=== PATIENT | male | born 1980 | race Caucasian/White ===

== ENCOUNTER 2017-11-11 10:48 | Emergency (ER) | payer MEDICARE, MEDICAID ==
[~2017-11-11] VITALS: Ht 177.8 cm; Wt 89.5 kg
[~2017-11-11 10:48] MED LIST: CARB200T PO; HYDR25CA PO; OLAN15TA3 PO; SERT100T PO
[2017-11-11] MEDS ORDERED: SODIUM CHLORIDE 0.9% 1,000 ML IV ONE (11:20)
[2017-11-11] MEDS ORDERED: LORazepam 2 MG/ML, 1ML IVPush ONE (11:30)
[2017-11-11] MEDS ORDERED: SODIUM CHLORIDE 0.9% 1,000ML IVBOLUS ONE (11:30)
[2017-11-11] MEDS ORDERED: SODIUM CHLORIDE FLUSH 10ML SYR IVF ONE (11:30)
[2017-11-11] MEDS ORDERED: QUET25TA5 PO (11:32)
[2017-11-11] MEDS ORDERED: LORA-445 PO (11:32)
[2017-11-11] MEDS ORDERED: LORazepam 2 MG/ML, 1ML ONE (11:37)
[2017-11-11 11:58] LABS: BASOPHILS # (AUTO) 0.07 x10^3/uL (0-0.1); BASOPHILS % (AUTO) 1 % (0-1); EOSINOPHILS # (AUTO) 0.06 x10^3/uL (0-0.4); EOSINOPHILS % (AUTO) 1 % (1-7); LYMPHOCYTES # (AUTO) 3.04 x10^3/uL (1-3.4); LYMPHOCYTES % (AUTO) 29 % (22-44); MD NO; MEAN CORPUSCULAR HEMOGLOBIN 28.5 pg (27.5-34.5); MEAN CORPUSCULAR HGB CONC 33.2 g/dL (33.2-36.2); MEAN CORPUSCULAR VOLUME 85.8 fL (81-97); MEAN PLATELET VOLUME 7.6 fL (7.4-10.4); MONOCYTES # (AUTO) 0.68 x10^3/uL (0.2-0.8); MONOCYTES % (AUTO) 7 % (2-9); NEUTROPHILS # (AUTO) 6.62 x10^3/uL (1.8-6.8); NEUTROPHILS % (AUTO) 63 % (42-75); PLATELET COUNT 350 x10^3/uL (130-400); RED BLOOD COUNT 5.18 x10^6/uL (4.38-5.82); RED CELL DISTRIBUTION WIDTH 14.4 % (9.4-14.8)
[2017-11-11 12:03] LABS: ALBUMIN 4.1 g/dL (3.4-5.0); ANION GAP 9 mmol/L (5-15); CHLORIDE 102 mmol/L (98-107)
[2017-11-11 12:06] LABS: ALANINE AMINOTRANSFERASE 42 U/L (12-78)
[2017-11-11 12:08] LABS: ACETAMINOPHEN < 2 mcg/mL (10-30); ALKALINE PHOSPHATASE 61 U/L (45-117); BILIRUBIN,TOTAL 0.5 mg/dL (0.2-1.0); SALICYLATE LEVEL < 1.7 mg/dL (2.8-20.0); TOTAL PROTEIN 8.1 g/dL (6.4-8.2)
[2017-11-11 15:13] LABS: CULTURE INDICATED? NO; MICROSCOPIC NOT IND
[2017-11-11 15:22] LABS: AMPHETAMINE SCREEN, URINE Positive (Negative); BARBITURATE SCREEN, URINE Negative (Negative); BENZODIAZEPINE SCREEN, URINE Negative (Negative); CANNABINOID SCREEN, URINE Positive (Negative); COCAINE SCREEN, URINE Negative (Negative); METHADONE SCREEN, URINE Negative (Negative); OPIATE SCREEN, URINE Negative (Negative)
[2017-11-11] MEDS ORDERED: HYDROcodone/APAP 5/325 TABLET PO PRN (18:30)
[2017-11-11] MEDS ORDERED: POLYETHYLENE GLYCOL 17 GM PACKET PO PRN (18:30)
[2017-11-11] MEDS ORDERED: ONDANSETRON ODT 4 MG PO PRN (18:30)
[2017-11-11] MEDS ORDERED: LORazepam 1MG TABLET PO PRN (18:30)
[2017-11-11] MEDS ORDERED: LORazepam 1MG TABLET PO ONE (19:00)
[2017-11-11] MEDS ORDERED: LORazepam 1MG TABLET ONE (19:23)
[2017-11-11] MEDS: CARBAMAZEPINE 200 MG TABLET PO SCH (21:00)
[2017-11-12] MEDS ORDERED: QUETIAPINE 200 MG TABLET PO SCH
[2017-11-12 06:09] LABS: BASOPHILS # (AUTO) 0.06 x10^3/uL (0-0.1); BASOPHILS % (AUTO) 1 % (0-1); EOSINOPHILS # (AUTO) 0.15 x10^3/uL (0-0.4); EOSINOPHILS % (AUTO) 2 % (1-7); LYMPHOCYTES # (AUTO) 3.31 x10^3/uL (1-3.4); LYMPHOCYTES % (AUTO) 46 % (22-44); MD NO; MEAN CORPUSCULAR HEMOGLOBIN 28.6 pg (27.5-34.5); MEAN CORPUSCULAR HGB CONC 33.4 g/dL (33.2-36.2); MEAN CORPUSCULAR VOLUME 85.6 fL (81-97); MEAN PLATELET VOLUME 7.1 fL (7.4-10.4); MONOCYTES # (AUTO) 0.61 x10^3/uL (0.2-0.8); MONOCYTES % (AUTO) 9 % (2-9); NEUTROPHILS # (AUTO) 3.07 x10^3/uL (1.8-6.8); NEUTROPHILS % (AUTO) 43 % (42-75); PLATELET COUNT 285 x10^3/uL (130-400); RED BLOOD COUNT 5.09 x10^6/uL (4.38-5.82); RED CELL DISTRIBUTION WIDTH 14.2 % (9.4-14.8)
[2017-11-12 06:14] LABS: CHLORIDE 105 mmol/L (98-107)
[2017-11-12 06:28] LABS: ANION GAP 9 mmol/L (5-15); CREATININE 0.78 mg/dL (0.7-1.3)
[2017-11-12] MEDS ORDERED: QUETIAPINE 100MG TABLET PO SCH (09:00)
[2017-11-12] MEDS ORDERED: SENNA/DOCUSATE TABLET PO SCH (09:00)
[2017-11-12] MEDS ORDERED: SERTRALINE 100MG TABLET PO SCH (09:00)
[2017-11-12] MEDS ORDERED: AMLODIPINE 5 MG TABLET PO SCH (09:00)
[2017-11-12] MEDS: CARBAMAZEPINE 200 MG TABLET PO SCH (09:11)
[2017-11-12] MEDS ORDERED: ALBUTEROL/IPRATROPIUM 2.5MG/0.5MG, 3 ML ONE (11:15)
[2017-11-12 12:00] VITALS: BP 121/71
[2017-11-14] MEDS ORDERED: NITROFURANTOIN (MACROBID) 100 MG CAPSULE ONE (00:48)
== END 2017-11-12 13:18 ==
LOC: ED 12:35 → EDIP 18:30 → UNDOADMOB 18:30
DX: F33.9 Major depressive disorder, recurrent, unspecified (principal); F15.10 Other stimulant abuse, uncomplicated; I10 Essential (primary) hypertension; F20.9 Schizophrenia, unspecified
CPT/HCPCS: 36415; 80048; 80053; 80307; 80329; 81003; 84439; 85025; 93005; 96361; 96374; 99285; J2060; J7030; G0480

== ENCOUNTER 2018-03-08 15:11 | Inpatient (IN) | payer MEDICARE, MEDICAID ==
[~2018-03-08] VITALS: Ht 177.8 cm; Wt 92.0 kg
[~2018-03-08 15:11] MED LIST changes: +LORA-445 PO; +QUET25TA5 PO
[2018-03-08] MEDS ORDERED: LORazepam 1MG TABLET PO ONE (15:30)
[2018-03-08] MEDS ORDERED: CLON2TAB PO (15:44)
[2018-03-08] MEDS ORDERED: DIVA250T4 PO (15:44)
[2018-03-08 15:48] LABS: BASOPHILS # (AUTO) 0.09 x10^3/uL (0-0.1); BASOPHILS % (AUTO) 1 % (0-1); EOSINOPHILS # (AUTO) 0.04 x10^3/uL (0-0.4); EOSINOPHILS % (AUTO) 0 % (1-7); LYMPHOCYTES % (AUTO) 18 % (22-44); MD NO; MEAN CORPUSCULAR HEMOGLOBIN 28.8 pg (27.5-34.5); MEAN CORPUSCULAR HGB CONC 33.4 g/dL (33.2-36.2); MEAN CORPUSCULAR VOLUME 86.2 fL (81-97); MEAN PLATELET VOLUME 7.6 fL (7.4-10.4); MONOCYTES % (AUTO) 7 % (2-9); NEUTROPHILS # (AUTO) 11.01 x10^3/uL (1.8-6.8); NEUTROPHILS % (AUTO) 74 % (42-75); PLATELET COUNT 372 x10^3/uL (130-400); RED BLOOD COUNT 5.03 x10^6/uL (4.38-5.82); RED CELL DISTRIBUTION WIDTH 14.1 % (9.4-14.8)
[2018-03-08 15:58] LABS: ALANINE AMINOTRANSFERASE 118 U/L (12-78); ALBUMIN 4.2 g/dL (3.4-5.0); ANION GAP 10 mmol/L (5-15); CALCIUM 9.2 mg/dL (8.5-10.1); CHLORIDE 101 mmol/L (98-107); CREATININE 0.86 mg/dL (0.7-1.3)
[2018-03-08 15:59] LABS: SALICYLATE LEVEL < 1.7 mg/dL (2.8-20.0)
[2018-03-08 16:01] LABS: ACETAMINOPHEN < 2 mcg/mL (10-30); ALKALINE PHOSPHATASE 69 U/L (45-117); TOTAL PROTEIN 8.8 g/dL (6.4-8.2)
[2018-03-08] MEDS ORDERED: LORazepam 1MG TABLET ONE (16:13)
[2018-03-08 16:34] LABS: AMPHETAMINE SCREEN, URINE Positive (Negative); BARBITURATE SCREEN, URINE Negative (Negative); BENZODIAZEPINE SCREEN, URINE Negative (Negative); CANNABINOID SCREEN, URINE Positive (Negative); COCAINE SCREEN, URINE Negative (Negative); METHADONE SCREEN, URINE Negative (Negative); OPIATE SCREEN, URINE Negative (Negative)
[2018-03-08 17:59] LABS: INTERNATIONAL NORMALIZED RATIO 1.1 (0.93-1.1); PROTHROMBIN TIME 11.4 Seconds (9.6-11.5)
[2018-03-08] MEDS ORDERED: hydrALAzine 20 MG/ML, 1ML IVPush PRN (18:00)
[2018-03-08] MEDS: POTASSIUM CHLORIDE 20 MEQ, MAGNESIUM SULFATE 2 GM, THIAMINE 100 MG, MVI ADULT 10 ML, FO... IV SCH (18:56)
[2018-03-08] MEDS: SODIUM CHLORIDE 0.9% 1,000 ML IV SCH (18:56)
[2018-03-08] MEDS ORDERED: HEPARIN 5,000 UNITS/ML, 1ML ONE (19:28)
[2018-03-08] MEDS ORDERED: FAMOTIDINE 20 MG TABLET ONE (19:28)
[2018-03-08] MEDS: HEPARIN 5,000 UNITS/ML, 1ML SQ SCH (19:32)
[2018-03-08] MEDS: FAMOTIDINE 20 MG TABLET PO SCH (19:33)
[2018-03-08] MEDS: CARBAMAZEPINE 200 MG TABLET PO SCH (20:23)
[2018-03-09 00:10] VITALS: BP 129/79
[2018-03-09 00:44] VITALS: BP 129/79
[2018-03-09] MEDS: HEPARIN 5,000 UNITS/ML, 1ML SQ SCH ×3 (02:00→19:53)
[2018-03-09 02:42] LABS: MICROSCOPIC NOT IND
[2018-03-09 02:47] LABS: CULTURE INDICATED? NO
[2018-03-09] MEDS: LORazepam 2 MG/ML, 1ML IVPush PRN ×2 (03:14→17:39)
[2018-03-09] MEDS: SODIUM CHLORIDE 0.9% 1,000 ML IV SCH ×4 (03:15→17:38)
[2018-03-09] MEDS: POTASSIUM CHLORIDE 20 MEQ, MAGNESIUM SULFATE 2 GM, THIAMINE 100 MG, MVI ADULT 10 ML, FO... IV SCH (03:55)
[2018-03-09 05:50] LABS: BASOPHILS # (AUTO) 0.06 x10^3/uL (0-0.1); BASOPHILS % (AUTO) 1 % (0-1); EOSINOPHILS # (AUTO) 0.15 x10^3/uL (0-0.4); EOSINOPHILS % (AUTO) 2 % (1-7); LYMPHOCYTES # (AUTO) 2.33 x10^3/uL (1-3.4); LYMPHOCYTES % (AUTO) 29 % (22-44); MD NO; MEAN CORPUSCULAR HEMOGLOBIN 28.9 pg (27.5-34.5); MEAN CORPUSCULAR HGB CONC 33.6 g/dL (33.2-36.2); MEAN CORPUSCULAR VOLUME 86.1 fL (81-97); MEAN PLATELET VOLUME 7.5 fL (7.4-10.4); MONOCYTES # (AUTO) 0.89 x10^3/uL (0.2-0.8); MONOCYTES % (AUTO) 11 % (2-9); NEUTROPHILS % (AUTO) 58 % (42-75); PLATELET COUNT 294 x10^3/uL (130-400); RED BLOOD COUNT 4.36 x10^6/uL (4.38-5.82); RED CELL DISTRIBUTION WIDTH 13.3 % (9.4-14.8)
[2018-03-09 05:54] LABS: ALANINE AMINOTRANSFERASE 85 U/L (12-78); ANION GAP 4 mmol/L (5-15); CALCIUM 8.1 mg/dL (8.5-10.1); CHLORIDE 108 mmol/L (98-107); CREATININE 0.73 mg/dL (0.7-1.3)
[2018-03-09 05:56] LABS: ALKALINE PHOSPHATASE 54 U/L (45-117); BILIRUBIN,TOTAL 0.6 mg/dL (0.2-1.0); TOTAL PROTEIN 6.6 g/dL (6.4-8.2)
[2018-03-09 07:14] VITALS: BP 116/61
[2018-03-09] MEDS: LORazepam 0.5MG TABLET PO SCH (07:59)
[2018-03-09] MEDS: CARBAMAZEPINE 200 MG TABLET PO SCH ×2 (07:59→19:53)
[2018-03-09] MEDS: SERTRALINE 100MG TABLET PO SCH (08:00)
[2018-03-09] MEDS: DIVALPROEX 250 MG TABLET.DR PO SCH (08:00)
[2018-03-09] MEDS: FAMOTIDINE 20 MG TABLET PO SCH ×2 (08:00→19:53)
[2018-03-09] MEDS: ACETAMINOPHEN 325 MG TABLET PO PRN (10:32)
[2018-03-09] MEDS ORDERED: VANCOMYCIN PER PHARMACY MC PRN (12:30)
[2018-03-09] MEDS ORDERED: PHARMACOKINETIC CONSULTATION MC ONE (13:00)
[2018-03-09] MEDS ORDERED: PHARMACOKINETIC MONITORING MC PRN (13:00)
[2018-03-09 15:16] VITALS: BP 138/81
[2018-03-09] MEDS: VANCOMYCIN 1,800 MG in SODIUM CHLORIDE 0.9% 250 ML IV SCH (17:38)
[2018-03-09 20:06] VITALS: BP 132/78
[2018-03-10] MEDS: LORazepam 2 MG/ML, 1ML IVPush PRN (01:45)
[2018-03-10 01:48] VITALS: BP 126/70
[2018-03-10] MEDS: SODIUM CHLORIDE 0.9% 1,000 ML IV SCH ×2 (02:15→09:39)
[2018-03-10] MEDS: HEPARIN 5,000 UNITS/ML, 1ML SQ SCH ×3 (04:00→19:55)
[2018-03-10 05:07] LABS: BASOPHILS # (AUTO) 0.06 x10^3/uL (0-0.1); BASOPHILS % (AUTO) 1 % (0-1); EOSINOPHILS # (AUTO) 0.14 x10^3/uL (0-0.4); EOSINOPHILS % (AUTO) 2 % (1-7); LYMPHOCYTES # (AUTO) 2.56 x10^3/uL (1-3.4); LYMPHOCYTES % (AUTO) 36 % (22-44); MD NO; MEAN CORPUSCULAR HEMOGLOBIN 29.2 pg (27.5-34.5); MEAN CORPUSCULAR VOLUME 88.4 fL (81-97); MEAN PLATELET VOLUME 7.7 fL (7.4-10.4); MONOCYTES % (AUTO) 8 % (2-9); NEUTROPHILS # (AUTO) 3.75 x10^3/uL (1.8-6.8); NEUTROPHILS % (AUTO) 53 % (42-75); PLATELET COUNT 311 x10^3/uL (130-400); RED BLOOD COUNT 4.41 x10^6/uL (4.38-5.82); RED CELL DISTRIBUTION WIDTH 14.3 % (9.4-14.8)
[2018-03-10 05:18] LABS: ALBUMIN 3.3 g/dL (3.4-5.0); ANION GAP 5 mmol/L (5-15); CALCIUM 8.7 mg/dL (8.5-10.1); CHLORIDE 106 mmol/L (98-107)
[2018-03-10 05:20] LABS: CREATININE 0.67 mg/dL (0.7-1.3)
[2018-03-10] MEDS: VANCOMYCIN 1,800 MG in SODIUM CHLORIDE 0.9% 250 ML IV SCH (05:29)
[2018-03-10 06:12] LABS: ALBUMIN 3.2 g/dL (3.4-5.0); BILIRUBIN, DIRECT 0.1 mg/dL (0.1-0.2); BILIRUBIN,INDIRECT 0.5 mg/dL (0.0-2.0); BILIRUBIN,TOTAL 0.6 mg/dL (0.2-1.0); TOTAL PROTEIN 7.2 g/dL (6.4-8.2)
[2018-03-10 07:06] VITALS: BP 126/78
[2018-03-10] MEDS: MULTIVITAMIN 1 TABLET PO SCH (07:54)
[2018-03-10] MEDS: THIAMINE 100MG TABLET PO SCH (07:54)
[2018-03-10] MEDS: CARBAMAZEPINE 200 MG TABLET PO SCH ×2 (07:54→19:54)
[2018-03-10] MEDS: LORazepam 0.5MG TABLET PO SCH (07:54)
[2018-03-10] MEDS: SERTRALINE 100MG TABLET PO SCH (07:54)
[2018-03-10] MEDS: FAMOTIDINE 20 MG TABLET PO SCH ×2 (07:54→19:55)
[2018-03-10] MEDS: FOLIC ACID 1 MG TABLET PO SCH (07:54)
[2018-03-10] MEDS: DIVALPROEX 250 MG TABLET.DR PO SCH (07:56)
[2018-03-10] MEDS ORDERED: NAPR-685 PO (11:43)
[2018-03-10] MEDS ORDERED: DIVA500T4 PO (11:43)
[2018-03-10] MEDS: ACETAMINOPHEN 325 MG TABLET PO PRN (12:42)
[2018-03-10 12:56] VITALS: BP 145/96
[2018-03-10 15:25] VITALS: BP 125/78
[2018-03-10 18:38] VITALS: BP 121/79
[2018-03-10] MEDS: DIVALPROEX 500 MG TAB.ER.24H PO SCH (19:55)
[2018-03-10] MEDS ORDERED: DIPHENHYDRAMINE 50 MG CAPSULE PO PRN (21:00)
[2018-03-11 01:49] VITALS: BP 122/77
[2018-03-11] MEDS: HEPARIN 5,000 UNITS/ML, 1ML SQ SCH ×4 (03:01→20:42)
[2018-03-11 04:59] LABS: ALANINE AMINOTRANSFERASE 68 U/L (12-78); ALBUMIN 3.3 g/dL (3.4-5.0); ANION GAP 6 mmol/L (5-15); CALCIUM 9.2 mg/dL (8.5-10.1); CHLORIDE 104 mmol/L (98-107)
[2018-03-11 05:01] LABS: ALKALINE PHOSPHATASE 51 U/L (45-117); BILIRUBIN,TOTAL 0.6 mg/dL (0.2-1.0); CREATININE 0.74 mg/dL (0.7-1.3); TOTAL PROTEIN 7.6 g/dL (6.4-8.2)
[2018-03-11 08:44] VITALS: BP 143/96
[2018-03-11] MEDS: ACETAMINOPHEN 325 MG TABLET PO PRN (08:58)
[2018-03-11] MEDS: SERTRALINE 100MG TABLET PO SCH (08:59)
[2018-03-11] MEDS: CARBAMAZEPINE 200 MG TABLET PO SCH ×2 (08:59→20:22)
[2018-03-11] MEDS: THIAMINE 100MG TABLET PO SCH (08:59)
[2018-03-11] MEDS: FOLIC ACID 1 MG TABLET PO SCH (08:59)
[2018-03-11] MEDS: FAMOTIDINE 20 MG TABLET PO SCH ×2 (08:59→20:21)
[2018-03-11] MEDS: MULTIVITAMIN 1 TABLET PO SCH (08:59)
[2018-03-11] MEDS: DIVALPROEX 500 MG TAB.ER.24H PO SCH ×2 (09:01→20:21)
[2018-03-11 15:45] VITALS: BP 111/70
[2018-03-11 18:34] VITALS: BP 117/75
[2018-03-11] MEDS ORDERED: QUETIAPINE 25MG TABLET PO SCH (21:00)
[2018-03-12 00:41] VITALS: BP 122/85
[2018-03-12 07:09] VITALS: BP 122/76
[2018-03-12] MEDS: MULTIVITAMIN 1 TABLET PO SCH (08:45)
[2018-03-12] MEDS: DIVALPROEX 500 MG TAB.ER.24H PO SCH ×2 (08:45→20:06)
[2018-03-12] MEDS: FOLIC ACID 1 MG TABLET PO SCH (08:45)
[2018-03-12] MEDS: CARBAMAZEPINE 200 MG TABLET PO SCH ×2 (08:46→20:06)
[2018-03-12] MEDS: FAMOTIDINE 20 MG TABLET PO SCH ×2 (08:46→20:06)
[2018-03-12] MEDS: THIAMINE 100MG TABLET PO SCH (08:46)
[2018-03-12] MEDS: SERTRALINE 100MG TABLET PO SCH (08:53)
[2018-03-12] MEDS: HEPARIN 5,000 UNITS/ML, 1ML SQ SCH ×2 (12:00→19:18)
[2018-03-12 14:22] VITALS: BP 120/85
[2018-03-12 18:34] VITALS: BP_SYST 136; BP_SYST 67; BP_DIAS 36; BP_DIAS 91
[2018-03-12] MEDS ORDERED: QUETIAPINE 200 MG TABLET PO SCH (21:00)
[2018-03-13] MEDS: HEPARIN 5,000 UNITS/ML, 1ML SQ SCH ×2 (00:06→12:00)
[2018-03-13 02:00] VITALS: BP 81/57
[2018-03-13 07:55] VITALS: BP 110/74
[2018-03-13 08:12] VITALS: BP_SYST 122; BP_SYST 131; BP_DIAS 74; BP_DIAS 84
[2018-03-13] MEDS: FAMOTIDINE 20 MG TABLET PO SCH (08:14)
[2018-03-13] MEDS: SERTRALINE 100MG TABLET PO SCH (08:14)
[2018-03-13] MEDS: CARBAMAZEPINE 200 MG TABLET PO SCH (08:14)
[2018-03-13] MEDS: DIVALPROEX 500 MG TAB.ER.24H PO SCH (08:14)
[2018-03-13] MEDS: MULTIVITAMIN 1 TABLET PO SCH (08:14)
[2018-03-13] MEDS: THIAMINE 100MG TABLET PO SCH (08:14)
[2018-03-13] MEDS: FOLIC ACID 1 MG TABLET PO SCH (08:14)
[2018-03-13] MEDS ORDERED: QUET200T PO (14:30)
[2018-03-13] MEDS ORDERED: SERT100T PO (14:30)
[2018-03-13] MEDS ORDERED: CARB200T PO (14:30)
[2018-03-13] MEDS ORDERED: DIVA500T4 PO (14:30)
[2018-03-13] MEDS ORDERED: FOLI-17 PO (14:30)
[2018-03-13] MEDS ORDERED: THIA100T6 PO (14:30)
[2018-03-13 15:06] VITALS: BP 131/78
== END 2018-03-13 16:32 | disposition home or self-care (01) | DRG 872 ==
LOC: ED 17:44 → OBSVTOIN 17:45 → EDIP 17:45 → 3NE 03-09 00:07
PROVIDERS: ADMIT Hospitalist; ATTEND Hospitalist
DX: A41.9 Sepsis, unspecified organism (principal); E87.1 Hypo-osmolality and hyponatremia; E44.1 Mild protein-calorie malnutrition; F15.20 Other stimulant dependence, uncomplicated; R45.851 Suicidal ideations; F25.0 Schizoaffective disorder, bipolar type; F29 Unspecified psychosis not due to a substance or known physiological condition; Z91.14 Patient's other noncompliance with medication regimen; E86.0 Dehydration; D63.8 Anemia in other chronic diseases classified elsewhere; Z68.29 Body mass index [BMI] 29.0-29.9, adult; F10.10 Alcohol abuse, uncomplicated; F12.20 Cannabis dependence, uncomplicated; F17.200 Nicotine dependence, unspecified, uncomplicated; I10 Essential (primary) hypertension; J44.9 Chronic obstructive pulmonary disease, unspecified; Z91.5 Personal history of self-harm
CPT/HCPCS: 36415; 71045; 76700; 80048; 80053; 80076; 80307; 80329; 81003; 82040; 83605; 83735; 84100; 84443; 85025; 85610; 87040; 93005; 99285; J1644; J3370; J3411; J3475; J3480; J7042; G0480; J2060; J7030; J7050

== ENCOUNTER 2018-08-14 08:30 | Emergency (ER) | payer MEDICARE, MEDICAID ==
[~2018-08-14] VITALS: Ht 177.8 cm; Wt 73.2 kg
[~2018-08-14 08:30] MED LIST changes: +CLON2TAB PO; +DIVA250T4 PO; +DIVA500T4 PO; +FOLI-17 PO; +NAPR-685 PO; +QUET200T PO; +THIA100T67 PO
[2018-08-14 08:32] VITALS: BP 133/88
== END 2018-08-14 11:02 | disposition home or self-care (01) ==
LOC: ED 10:26
DX: G89.29 Other chronic pain (principal); M25.531 Pain in right wrist; R10.2 Pelvic and perineal pain; M19.90 Unspecified osteoarthritis, unspecified site; I10 Essential (primary) hypertension; F32.9 Major depressive disorder, single episode, unspecified; F20.9 Schizophrenia, unspecified; Z87.891 Personal history of nicotine dependence
CPT/HCPCS: 72190; 99284

== ENCOUNTER 2018-09-21 16:19 | Emergency (ER) | payer MEDICARE, MEDICAID ==
[~2018-09-21] VITALS: Ht 177.8 cm; Wt 69.8 kg
[2018-09-21 16:39] VITALS: BP 133/71
[2018-09-21] MEDS ORDERED: HYDROcodone/APAP 5/325 TABLET ONE (17:41)
[2018-09-21] MEDS ORDERED: IBUPROFEN 200 MG TABLET ONE (17:41)
[2018-09-21] MEDS ORDERED: IBUPROFEN 200 MG TABLET PO ONE (18:00)
[2018-09-21] MEDS ORDERED: HYDROcodone/APAP 5/325 TABLET PO ONE (18:00)
== END 2018-09-21 18:15 | disposition home or self-care (01) ==
LOC: ED 17:00
DX: S63.501A Unspecified sprain of right wrist, initial encounter (principal); I10 Essential (primary) hypertension; X58.XXXA Exposure to other specified factors, initial encounter; Y93.89 Activity, other specified; Y92.89 Other specified places as the place of occurrence of the external cause; Y99.8 Other external cause status
CPT/HCPCS: 29125; 99283

== ENCOUNTER 2018-11-20 07:17 | Emergency (ER) | payer MEDICARE, MEDICAID ==
[~2018-11-20] VITALS: Ht 177.8 cm; Wt 70.0 kg
[2018-11-20 07:24] VITALS: BP 144/90
--- NOTE | 2018-11-20 07:36 | NUR ---
pt frequently changes areas of body with pain complaint, walking the halls prior to being seen by this RN & ERP.
--- NOTE | 2018-11-20 07:48 | NUR ---
ASSUMED CARE OF PATIENT. REPORT GIVEN FROM OLGA NICHOLE
[2018-11-20] MEDS ORDERED: IBUPROFEN 200 MG TABLET PO ONE (08:00)
[2018-11-20] MEDS ORDERED: IBUPROFEN 200 MG TABLET ONE (08:07)
--- NOTE | 2018-11-20 08:13 | NUR ---
PT RESTING IN ROOM. NO ACUTE DISTRESS NOTED. CALL LIGHT IN PLACE. WILL CONTINUE TO MONITOR.
--- NOTE | 2018-11-20 08:32 | NUR ---
resumed care of pt from [place]. pt up to [place], back to [facility] awake & comfortable, responds approp to staff, NAD, comfort measures provided, call light within reach.
--- NOTE | 2018-11-20 09:23 | NUR ---
Patient given discharge instructions and they have confirmed that they understand the instructions. Patient ambulatory with steady gait.
== END 2018-11-20 09:23 | disposition home or self-care (01) ==
LOC: ED 09:22
DX: S92.254A Nondisplaced fracture of navicular [scaphoid] of right foot, initial encounter for closed fracture (principal); M25.551 Pain in right hip; G89.29 Other chronic pain; I10 Essential (primary) hypertension; Z87.891 Personal history of nicotine dependence; W19.XXXA Unspecified fall, initial encounter; Y93.89 Activity, other specified; Y92.410 Unspecified street and highway as the place of occurrence of the external cause; Y99.8 Other external cause status
CPT/HCPCS: 99283

== ENCOUNTER 2019-04-03 15:22 | Emergency (ER) | payer MEDICARE, MEDICAID ==
[~2019-04-03] VITALS: Ht 177.8 cm; Wt 68.3 kg
[2019-04-03 16:26] LABS: BASOPHILS # (AUTO) 0.04 x10^3/uL (0-0.1); BASOPHILS % (AUTO) 0 % (0-1); EOSINOPHILS # (AUTO) 0.27 x10^3/uL (0-0.4); EOSINOPHILS % (AUTO) 2 % (1-7); LYMPHOCYTES # (AUTO) 2.77 x10^3/uL (1-3.4); LYMPHOCYTES % (AUTO) 23 % (22-44); MD NO; MEAN CORPUSCULAR HEMOGLOBIN 27.2 pg (27.5-34.5); MEAN CORPUSCULAR HGB CONC 32.4 g/dL (33.2-36.2); MEAN CORPUSCULAR VOLUME 83.8 fL (81-97); MEAN PLATELET VOLUME 7.1 fL (7.4-10.4); MONOCYTES # (AUTO) 0.63 x10^3/uL (0.2-0.8); MONOCYTES % (AUTO) 5 % (2-9); NEUTROPHILS # (AUTO) 8.12 x10^3/uL (1.8-6.8); NEUTROPHILS % (AUTO) 69 % (42-75); PLATELET COUNT 395 x10^3/uL (130-400); RED BLOOD COUNT 4.98 x10^6/uL (4.38-5.82); RED CELL DISTRIBUTION WIDTH 14.1 % (9.4-14.8)
[2019-04-03 16:33] LABS: ALBUMIN 3.8 g/dL (3.4-5.0); ANION GAP 6 mmol/L (5-15); CHLORIDE 106 mmol/L (98-107)
[2019-04-03 16:37] LABS: ALANINE AMINOTRANSFERASE 82 U/L (12-78); ALKALINE PHOSPHATASE 80 U/L (45-117); BILIRUBIN,TOTAL 0.2 mg/dL (0.2-1.0); CALCIUM 9.2 mg/dL (8.5-10.1); CREATININE 0.72 mg/dL (0.7-1.3); TOTAL PROTEIN 7.5 g/dL (6.4-8.2)
--- NOTE | 2019-04-03 17:11 | NUR ---
REGIONAL SALES REPRESENTATIVE: PT WALKED BACK FROM LOBBY TO ROOM AT THIS TIME. STEADY UPON AMBULATION. NAD NOTED.
--- NOTE | 2019-04-03 17:18 | NUR ---
PATIENT PRESENTS TO ED TODAY FOR LOWER ABD PAIN AND BLOOD IN STOOL TODAY. LABS BACK, URINAL PROVIDED TO PATIENT, PATIENT UNABLE TO URINATE AT THIS TIME. CALL LIGHT WITHIN REACH, 2WARM BLANKET PROVIDED.
[2019-04-03] MEDS ORDERED: QUET400T4 PO (17:20)
--- NOTE | 2019-04-03 17:45 | NUR ---
NEW ORDERS, IV ESTABLISHED, AWAITING CT. PATIENT SITTING IN GUILLERMO SU. VS UPDATED IN CHART.
[2019-04-03] MEDS ORDERED: OMNIPAQUE 350 MG/ML, 100ML BOTTLE ONE (18:00)
--- NOTE | 2019-04-03 18:38 | NUR ---
PATIENT UNABLE TO URINATE, UNABLE TO COLLECT URINE FOR UA. CT RESULTS BACK, CHART UP FOR RECHECK.
--- NOTE | 2019-04-03 18:59 | NUR ---
REPORT TO OLGA CAMEJO.
[2019-04-03 19:27] VITALS: BP 131/74
== END 2019-04-03 19:28 | disposition home or self-care (01) ==
LOC: ED 18:52
DX: K64.5 Perianal venous thrombosis (principal); F20.9 Schizophrenia, unspecified; F32.9 Major depressive disorder, single episode, unspecified; I10 Essential (primary) hypertension; F17.200 Nicotine dependence, unspecified, uncomplicated; Z72.9 Problem related to lifestyle, unspecified
CPT/HCPCS: 36415; 74177; 80053; 83690; 85025; 99284; Q9967

== ENCOUNTER 2019-06-02 02:01 | Emergency (ER) | payer MEDICARE, MEDICAID ==
[~2019-06-02] VITALS: Ht 177.8 cm; Wt 66.1 kg
[2019-06-02 02:04] VITALS: BP 121/80
== END 2019-06-02 03:20 | disposition home or self-care (01) ==
LOC: ED 03:10
DX: Z48.01 Encounter for change or removal of surgical wound dressing (principal); F32.9 Major depressive disorder, single episode, unspecified; F20.9 Schizophrenia, unspecified; Z87.891 Personal history of nicotine dependence
CPT/HCPCS: 29125; 99283

== ENCOUNTER 2019-08-18 08:13 | Emergency (ER) | payer MEDICARE, MEDICAID ==
[~2019-08-18] VITALS: Ht 177.8 cm; Wt 70.6 kg
[~2019-08-18 08:13] MED LIST changes: +QUET400T4 PO
--- NOTE | 2019-08-18 08:55 | NUR ---
LATE NOTE ENTRY DUE TO PT CARE. Pt presents to ED with c/o "difficulty breathing and chest pain". GUILLERMO. Pt resting on gurney connected to NIBP cuff, ride operator, and pulse ox monitor. Bedrails up x 2, call light within reach. No other needs expressed. Pt in NSR on monitor and lung sounds are clear up auscultation in all lung park. Addendum: 08/18/19 at 0900 by MCIRAC Prior note charted on wrong pt.
[2019-08-18] MEDS ORDERED: HYDROcodone/APAP 10/325 MG TABLET PO ONE (09:00)
--- NOTE | 2019-08-18 09:00 | NUR ---
LATE NOTE ENTRY DUE TO PT CARE. Pt presents to ED with c/o right hip and right wrist pain due to GLF yesterday. Pt denies head trauma. Pt denies syncope or loss of conciousness. Pt ambulates with steady gait and balance. NADN. No other needs expressed. Pt resting on gurney connected to NIBP cuff and continous pulse ox monitor. Call light within reach.
--- NOTE | 2019-08-18 09:00 | NUR ---
Prior note charted on wrong pt.
--- NOTE | 2019-08-18 09:03 | NUR ---
Jairo transported on [facility] to X-ray.
[2019-08-18] MEDS ORDERED: HYDROcodone/APAP 10/325 MG TABLET ONE (09:08)
[2019-08-18 09:19] VITALS: BP 111/86
--- NOTE | 2019-08-18 10:11 | NUR ---
Patient given discharge instructions and they have confirmed that they understand the instructions. Patient ambulatory with steady gait. Pt left with d/c paperwork and all personal belongings. NADN. No other needs expressed.
== END 2019-08-18 10:13 | disposition home or self-care (01) ==
LOC: ED 08:37
DX: S60.211A Contusion of right wrist, initial encounter (principal); S70.01XA Contusion of right hip, initial encounter; Z72.9 Problem related to lifestyle, unspecified; F20.9 Schizophrenia, unspecified; F32.9 Major depressive disorder, single episode, unspecified; F41.1 Generalized anxiety disorder; W18.39XA Other fall on same level, initial encounter; Y93.89 Activity, other specified; Y92.410 Unspecified street and highway as the place of occurrence of the external cause; Y99.8 Other external cause status
CPT/HCPCS: 99283

== ENCOUNTER 2019-10-01 05:34 | Emergency (ER) | payer MEDICARE, MEDICAID ==
[~2019-10-01] VITALS: Ht 177.8 cm; Wt 70.6 kg
[2019-10-01 05:36] VITALS: BP 152/94
--- NOTE | 2019-10-01 06:06 | NUR ---
PT RESTING IN [facility] AT THIS TIME. AWAITING XRAY. PT PROVIDED WITH GLASS OF WATER PER PT REQUEST.
--- NOTE | 2019-10-01 06:56 | NUR ---
REPORT OF PT TO OLGA MAYS. ALL QUESTIONS ANSWERED.
--- NOTE | 2019-10-01 07:33 | NUR ---
Patient/Caregiver given discharge instructions and they have confirmed that they understand the instructions. Patient ambulatory with steady gait.
== END 2019-10-01 07:37 ==
LOC: ED 06:20
DX: S93.491A Sprain of other ligament of right ankle, initial encounter (principal); G89.11 Acute pain due to trauma; M19.90 Unspecified osteoarthritis, unspecified site; Z72.9 Problem related to lifestyle, unspecified; X58.XXXA Exposure to other specified factors, initial encounter; Y93.89 Activity, other specified; Y92.488 Other paved roadways as the place of occurrence of the external cause; Y99.8 Other external cause status
CPT/HCPCS: 99283

== ENCOUNTER 2019-12-19 07:45 | Emergency (ER) | payer MEDICARE, MEDICAID ==
[~2019-12-19] VITALS: Ht 177.8 cm; Wt 73.9 kg
[2019-12-19 07:48] VITALS: BP 131/88
--- NOTE | 2019-12-19 08:18 | NUR ---
SUPERINTENDENT CUSTODIAN JANITOR: PT AMBULATORY WITH STEADY GAIT TO ROOM AT THIS TIME.
[2019-12-19 08:24] LABS: BASOPHILS # (AUTO) 0.03 x10^3/uL (0-0.1); BASOPHILS % (AUTO) 0 % (0-1); EOSINOPHILS # (AUTO) 0.16 x10^3/uL (0-0.4); EOSINOPHILS % (AUTO) 2 % (1-7); LYMPHOCYTES # (AUTO) 2.19 x10^3/uL (1-3.4); LYMPHOCYTES % (AUTO) 22 % (22-44); MD NO; MEAN CORPUSCULAR HEMOGLOBIN 27.9 pg (27.5-34.5); MEAN CORPUSCULAR HGB CONC 33.4 g/dL (33.2-36.2); MEAN CORPUSCULAR VOLUME 83.6 fL (81-97); MEAN PLATELET VOLUME 7.2 fL (7.4-10.4); MONOCYTES % (AUTO) 9 % (2-9); NEUTROPHILS # (AUTO) 6.68 x10^3/uL (1.8-6.8); NEUTROPHILS % (AUTO) 67 % (42-75); PLATELET COUNT 322 x10^3/uL (130-400); RED BLOOD COUNT 5.81 x10^6/uL (4.38-5.82); RED CELL DISTRIBUTION WIDTH 13.9 % (9.4-14.8)
[2019-12-19 08:33] LABS: ALANINE AMINOTRANSFERASE 36 U/L (12-78); ALBUMIN 3.8 g/dL (3.4-5.0); ANION GAP 7 mmol/L (5-15); CALCIUM 9.1 mg/dL (8.5-10.1); CHLORIDE 105 mmol/L (98-107); CREATININE 0.85 mg/dL (0.7-1.3)
[2019-12-19 08:35] LABS: ALKALINE PHOSPHATASE 85 U/L (45-117); BILIRUBIN,TOTAL 0.5 mg/dL (0.2-1.0)
== END 2019-12-19 09:20 | disposition left against medical advice (07) ==
LOC: ED 08:23
DX: R19.7 Diarrhea, unspecified (principal); R10.84 Generalized abdominal pain; F17.210 Nicotine dependence, cigarettes, uncomplicated
CPT/HCPCS: 36415; 80053; 83690; 85025; 99283

== ENCOUNTER 2020-01-25 07:58 | Emergency (ER) | payer MEDICARE, MEDICAID ==
[~2020-01-25] VITALS: Ht 177.8 cm; Wt 75.0 kg
[2020-01-25 08:12] VITALS: BP 116/78
--- NOTE | 2020-01-25 08:28 | NUR ---
PT TO XRAY
--- NOTE | 2020-01-25 08:53 | NUR ---
REPORT RECEIVED FROM OLGA PIMENTEL. ASSUMED CARE OF PT.
[2020-01-25] MEDS ORDERED: NEOSPORIN OINT. PKT 1 PACKET ONE ×2 (09:14→09:26)
== END 2020-01-25 09:34 | disposition home or self-care (01) ==
LOC: ED 08:41
DX: L03.114 Cellulitis of left upper limb (principal); L03.113 Cellulitis of right upper limb
CPT/HCPCS: 99284

== ENCOUNTER 2020-05-25 08:38 | Emergency (ER) | payer MEDICARE, MEDICAID ==
[~2020-05-25] VITALS: Ht 177.8 cm; Wt 76.5 kg
[2020-05-25 08:40] VITALS: BP 97/76
--- NOTE | 2020-05-25 09:15 | NUR ---
REPORT RECEIVED FROM OLGA MOSS, CARE ASSUMED AT THIS TIME. PT HAS BEEN SEEN BY YUVAL ELMORE, AWAITING ORDERS.
--- NOTE | 2020-05-25 10:58 | NUR ---
XRAY COMPLETED, AWAITING RESULTS AND DISPO. PT IN NO ACUTE DISTRESS.
--- NOTE | 2020-05-25 12:07 | NUR ---
PT GIVEN DC INSTRUCTIONS AND SCRIPT, EDUCATED REGARDING RX FOR NAPROXEN. PT DECLINES REPEAT VS. PT AMBULATORY TO DC DESK WITH STEADY GAIT, NADN AT DC.
== END 2020-05-25 12:08 | disposition home or self-care (01) ==
LOC: ED 09:23
DX: G89.29 Other chronic pain (principal); M25.531 Pain in right wrist
CPT/HCPCS: 99283

== ENCOUNTER 2020-09-09 18:41 | Emergency (ER) | payer MEDICARE, MEDICAID ==
--- NOTE | 2020-09-09 18:55 | NUR ---
NIL X 1
--- NOTE | 2020-09-09 19:02 | NUR ---
NIL, NA X 2
--- NOTE | 2020-09-09 19:12 | NUR ---
NA, NIL X 3
== END 2020-09-09 19:15 | disposition left against medical advice (07) ==
LOC: ED 19:09
DX: T63.301A Toxic effect of unspecified spider venom, accidental (unintentional), initial encounter (principal); Z53.21 Procedure and treatment not carried out due to patient leaving prior to being seen by health care provider; Y92.89 Other specified places as the place of occurrence of the external cause

== ENCOUNTER 2020-10-05 21:39 | Emergency (ER) | payer MEDICARE, MEDICAID ==
[~2020-10-05] VITALS: Ht 177.8 cm; Wt 73.8 kg
--- NOTE | 2020-10-05 21:51 | NUR ---
Dr johnson at bedside. Pt in NAD, pos csmtp.
[2020-10-05] MEDS ORDERED: SULFAMETH./TRIMETHOPRIM DS 800MG/160MG TABLET ONE (21:58)
[2020-10-05] MEDS ORDERED: CEPHALEXIN 500 MG CAPSULE ONE (21:58)
[2020-10-05] MEDS ORDERED: SULFAMETH./TRIMETHOPRIM DS 800MG/160MG TABLET PO ONE (22:00)
[2020-10-05] MEDS ORDERED: CEPHALEXIN 500 MG CAPSULE PO ONE (22:00)
--- NOTE | 2020-10-05 22:06 | NUR ---
PXR done. medicated with abx per order.
[2020-10-05 22:12] VITALS: BP 124/80
--- NOTE | 2020-10-05 22:35 | NUR ---
No change, waiting for erp re-eval and dispo.
== END 2020-10-05 23:01 | disposition home or self-care (01) ==
LOC: ED 22:06
DX: G89.11 Acute pain due to trauma (principal); M25.531 Pain in right wrist; L03.113 Cellulitis of right upper limb; F11.10 Opioid abuse, uncomplicated; F15.10 Other stimulant abuse, uncomplicated; Z72.9 Problem related to lifestyle, unspecified; Z87.891 Personal history of nicotine dependence; W18.30XA Fall on same level, unspecified, initial encounter; Y93.89 Activity, other specified; Y92.410 Unspecified street and highway as the place of occurrence of the external cause; Y99.8 Other external cause status
CPT/HCPCS: 99283

== ENCOUNTER 2021-01-18 13:28 | Emergency (ER) | payer MEDICAID, MEDICARE ==
[~2021-01-18] VITALS: Ht 177.8 cm; Wt 71.7 kg
[~2021-01-18 13:28] MED LIST changes: -FOLI-17 PO; +FOLI1TAB32 PO
[2021-01-18 13:41] VITALS: BP 139/91
--- NOTE | 2021-01-18 14:40 | NUR ---
trust clerk: attempted to call pt from lobby to room, no answer
--- NOTE | 2021-01-18 14:53 | NUR ---
career services officer: attempted to call pt to place in room, no answer in lobby
--- NOTE | 2021-01-18 15:02 | NUR ---
brim and crown presser: attempted to call pt to place in room, no answer in lobby
--- NOTE | 2021-01-18 15:03 | NUR ---
PATIENT CALLED X3, NO ANSWER IN LOBBY. PATIENT ELOPED.
== END 2021-01-18 15:04 | disposition left against medical advice (07) ==
LOC: ED 14:52
DX: M25.531 Pain in right wrist (principal); Z53.21 Procedure and treatment not carried out due to patient leaving prior to being seen by health care provider
CPT/HCPCS: 99281

== ENCOUNTER 2021-03-05 22:52 | Emergency (ER) | payer MEDICARE ==
[~2021-03-05] VITALS: Ht 185.4 cm; Wt 80.0 kg
--- NOTE | 2021-03-05 23:21 | NUR ---
THIS IS A 40M BIB EMS FOR SI. [employer] WAS CALLED PT HAD CUT SELF PRIOR TO ARRIVAL. PT ARRIVED WITH LEGAL HOLD IN PLACE. PT STS "I'M JUST GOING THROUGH IT WITH THIS GIRL SHE TOLD ME TO KILL MYSELF, I WAS CUTTING MY WRISTS SO I COULD BLEED OUT." PT STS HX OF JUMPING OFF OF A BUILDING IN THE PAST. PT CALM COOPERATIVE WITH STAFF REQ SNACKS AND BLANKETS. BOTH PROVIDED, 1 BAG OF BELONGINGS LABELED AND PLACED IN BIN. URINE SENT TO LAB. SITTER IN SIGHT OF PT
[2021-03-05 23:29] LABS: BASOPHILS % (AUTO) 1 % (0-1); EOSINOPHILS % (AUTO) 2 % (1-7); LYMPHOCYTES % (AUTO) 33 % (22-44); MD NO; MEAN CORPUSCULAR HEMOGLOBIN 28.2 pg (27.5-34.5); MEAN CORPUSCULAR HGB CONC 33.5 g/dL (33.2-36.2); MEAN PLATELET VOLUME 6.9 fL (7.4-10.4); MONOCYTES % (AUTO) 7 % (2-9); NEUTROPHILS % (AUTO) 57 % (42-75); PLATELET COUNT 352 x10^3/uL (130-400); RED BLOOD COUNT 5.17 x10^6/uL (4.38-5.82); RED CELL DISTRIBUTION WIDTH 13.5 % (9.4-14.8)
[2021-03-05 23:35] LABS: AMPHETAMINE SCREEN, URINE Negative (Negative); BARBITURATE SCREEN, URINE Negative (Negative); BENZODIAZEPINE SCREEN, URINE Negative (Negative); CANNABINOID SCREEN, URINE Negative (Negative); COCAINE SCREEN, URINE Negative (Negative); METHADONE SCREEN, URINE Negative (Negative); OPIATE SCREEN, URINE Negative (Negative)
[2021-03-05 23:40] LABS: ALANINE AMINOTRANSFERASE 28 U/L (12-78); ALBUMIN 3.7 g/dL (3.4-5.0); ANION GAP 5 mmol/L (5-15); CALCIUM 8.5 mg/dL (8.5-10.1); CHLORIDE 107 mmol/L (98-107)
[2021-03-05 23:43] LABS: ALKALINE PHOSPHATASE 69 U/L (45-117); BILIRUBIN,TOTAL 0.3 mg/dL (0.2-1.0); CREATININE 0.77 mg/dL (0.7-1.3); SALICYLATE LEVEL < 1.7 mg/dL (2.8-20.0); TOTAL PROTEIN 7.3 g/dL (6.4-8.2)
--- NOTE | 2021-03-06 00:53 | NUR ---
PT RESTING COMFORTABLY ON MERLE LI, SITTER IN SIGHT
--- NOTE | 2021-03-06 02:04 | NUR ---
PT RESTING ON SHARLENE LI, SITTER IN SIGHT
--- NOTE | 2021-03-06 03:25 | NUR ---
PT RESTING COMFORTABLY ON MERLE LI, SITTER IN SIGHT
--- NOTE | 2021-03-06 04:28 | NUR ---
PT RESTING COMFORTABLY ON MERLE LI, SITTER IN SIGHT
--- NOTE | 2021-03-06 04:34 | NUR ---
TP RN: PACKET FAXED TO [facility], [facility], [facility], [facility], [facility], [facility]
--- NOTE | 2021-03-06 04:45 | NUR ---
SILVINA ([facility]) SAID THEY ARE AT [facility] FOR MALE BEDS
--- NOTE | 2021-03-06 05:00 | NUR ---
RAPID COVID SWAB DONE AND WALKED TO LAB AT THIS TIME
--- NOTE | 2021-03-06 05:31 | NUR ---
PT RESTING COMFORTABLY ON MERLE LI, SITTER IN SIGHT
--- NOTE | 2021-03-06 06:32 | NUR ---
PT RESTING COMFORTABLY ON MERLE LI, SITTER IN SIGHT
--- NOTE | 2021-03-06 06:50 | NUR ---
REPORT FROM ANDREW
[2021-03-06 07:46] VITALS: BP 120/75
--- NOTE | 2021-03-06 08:19 | NUR ---
MEAL TRAY GIVEN. SITTER PRESENT
--- NOTE | 2021-03-06 08:25 | NUR ---
REPORT TO [facility]
--- NOTE | 2021-03-06 08:57 | NUR ---
PT TRANSFERRED TO [facility], [place] [facility]ORT. ALL BELONGINGS W PT
== END 2021-03-06 08:57 ==
LOC: ED 23:24
DX: S61.512A Laceration without foreign body of left wrist, initial encounter (principal); Z20.822 Contact with and (suspected) exposure to COVID-19; R45.851 Suicidal ideations; Z87.891 Personal history of nicotine dependence; R25.8 Other abnormal involuntary movements; W26.9XXA Contact with unspecified sharp object(s), initial encounter; Y93.89 Activity, other specified; Y92.89 Other specified places as the place of occurrence of the external cause; Y99.8 Other external cause status
CPT/HCPCS: 36415; 80053; 80299; 80307; 80320; 80329; 85025; 87635; 99285; G0480

== ENCOUNTER 2021-04-16 00:18 | Emergency (ER) | payer MEDICARE ==
[~2021-04-16] VITALS: Ht 177.8 cm; Wt 70.3 kg
[2021-04-16 00:28] VITALS: BP 128/90
[2021-04-16] MEDS ORDERED: BACITRACIN ZINC OINT 500U/GM, 0.9 GM ONE (00:44)
--- NOTE | 2021-04-16 00:49 | NUR ---
Bacitracin to bilat balls of feet, wrapped with kerlix. Pt requesting note for work says "I have to stand all day and it hurts my feet, I might get fired". Will provide work note to pt,
== END 2021-04-16 01:41 | disposition home or self-care (01) ==
LOC: ED 01:00
DX: S90.822A Blister (nonthermal), left foot, initial encounter (principal); S90.821A Blister (nonthermal), right foot, initial encounter; M79.671 Pain in right foot; M79.672 Pain in left foot; X58.XXXA Exposure to other specified factors, initial encounter; Y93.89 Activity, other specified; Y92.89 Other specified places as the place of occurrence of the external cause; Y99.8 Other external cause status
CPT/HCPCS: 99282

== ENCOUNTER 2021-06-15 19:46 | Observation (INO) | payer MEDICARE, MEDICAID ==
[~2021-06-15] VITALS: Ht 177.8 cm; Wt 69.6 kg
[~2021-06-15 19:46] MED LIST changes: -QUET200T PO; +QUET200T2 PO
[2021-06-15 19:56] VITALS: BP 117/86
[2021-06-15 20:25] LABS: BASOPHILS % (AUTO) 1 % (0-1); EOSINOPHILS % (AUTO) 2 % (1-7); LYMPHOCYTES % (AUTO) 41 % (22-44); MEAN CORPUSCULAR HEMOGLOBIN 27.6 pg (27.5-34.5); MEAN CORPUSCULAR HGB CONC 33.3 g/dL (33.2-36.2); MEAN PLATELET VOLUME 6.9 fL (7.4-10.4); MONOCYTES % (AUTO) 8 % (2-9); NEUTROPHILS % (AUTO) 47 % (42-75); PLATELET COUNT 335 x10^3/uL (130-400); RED BLOOD COUNT 4.87 x10^6/uL (4.38-5.82); RED CELL DISTRIBUTION WIDTH 14.9 % (9.4-14.8)
[2021-06-15 20:37] LABS: ALANINE AMINOTRANSFERASE 30 U/L (12-78); ALBUMIN 3.5 g/dL (3.4-5.0); ANION GAP 7 mmol/L (5-15); CALCIUM 9.1 mg/dL (8.5-10.1); CHLORIDE 107 mmol/L (98-107); CREATININE 0.83 mg/dL (0.7-1.3); SALICYLATE LEVEL < 1.7 mg/dL (2.8-20.0)
[2021-06-15 20:39] LABS: ALKALINE PHOSPHATASE 74 U/L (45-117); BILIRUBIN,TOTAL 0.3 mg/dL (0.2-1.0); TOTAL PROTEIN 7.2 g/dL (6.4-8.2)
--- NOTE | 2021-06-15 20:57 | NUR ---
Pt arrived with c/o SI. States that he has cut his chest with knife and visable abrasions on L chest that have now scabbed over. Pt also reports standing at the top of the parking structure and wanting to jumpt off. Pt has past hx of jumping off building trying to hurt himself. States that he didn't jump becuase his girlfriend might be . Past medical hx of suicidal ideation. All belongings collected and placed in bag in secure locker. [place] provided, lab at bedside, charge aware of need for sitVICKY stack Addendum: 06/15/21 at 2109 by SAMSON room secured
[2021-06-15 21:45] LABS: AMPHETAMINE SCREEN, URINE Positive (Negative); BARBITURATE SCREEN, URINE Negative (Negative); BENZODIAZEPINE SCREEN, URINE Negative (Negative); CANNABINOID SCREEN, URINE Positive (Negative); COCAINE SCREEN, URINE Negative (Negative); METHADONE SCREEN, URINE Negative (Negative); OPIATE SCREEN, URINE Negative (Negative)
--- NOTE | 2021-06-15 21:49 | NUR ---
Pt resting in bed, this RN rounding on pt for pt saftey. Curtain open and door open with room secure to monitor pt. VICKY
--- NOTE | 2021-06-15 22:56 | NUR ---
Sitter in view of pt, pt resting with eyes closed, BEARN
--- NOTE | 2021-06-15 23:57 | NUR ---
PT continues to rest in bed with eyes closed, even and symmetrical chest rise, sitter in view of pt, BEARN
--- NOTE | 2021-06-16 00:46 | NUR ---
Pt resting in bed with eyes closed, even and symmetrical chest rise, siter in view of ptGUILLERMO
--- NOTE | 2021-06-16 01:41 | NUR ---
Pt continues to rest in bed with eyes closed and sitter in sight of pt
--- NOTE | 2021-06-16 03:15 | NUR ---
pt resting in bed, sitter in view, GUILLERMO
--- NOTE | 2021-06-16 04:20 | NUR ---
[facility] accepts. Accepting doctor is Dr. Beauchamp. via [facility]
--- NOTE | 2021-06-16 04:20 | NUR ---
packet faxed to [facility], [facility]
--- NOTE | 2021-06-16 04:35 | NUR ---
Pt resting in bed with eyes closed, WCTM
--- NOTE | 2021-06-16 04:53 | NUR ---
Report to RN at [facility] Addendum: 06/16/21 at 0453 by SAMSON RAMIRO
--- NOTE | 2021-06-16 05:45 | NUR ---
pt resting with eyes closed, NADN, WCTM
--- NOTE | 2021-06-16 05:49 | NUR ---
[facility] here to take pt to [facility]
== END 2021-06-16 06:32 | disposition other institution (70) ==
LOC: ED 21:01 → EDIP 22:54
PROVIDERS: ADMIT Emergency Medicine; ATTEND Emergency Medicine
DX: R45.851 Suicidal ideations (principal); S20.319A Abrasion of unspecified front wall of thorax, initial encounter; F32.9 Major depressive disorder, single episode, unspecified; F20.9 Schizophrenia, unspecified; F15.90 Other stimulant use, unspecified, uncomplicated; Z91.19 Patient's noncompliance with other medical treatment and regimen; Z79.899 Other long term (current) drug therapy; X83.8XXA Intentional self-harm by other specified means, initial encounter; Y93.89 Activity, other specified; Y92.89 Other specified places as the place of occurrence of the external cause
CPT/HCPCS: 36415; 80053; 80299; 80307; 80320; 85025; 99284; G0378; 80329; G0480